=== PATIENT | female | born 1945 | race Caucasian/White ===

== ENCOUNTER 2019-12-06 12:50 | Outpatient (CLI) | payer OTHER | END 2019-12-06 13:04 | disposition home or self-care (01) | LOC: NUCLEAR 12:50 | DX: M81.0 Age-related osteoporosis without current pathological fracture (principal); Z13.820 Encounter for screening for osteoporosis ==

== ENCOUNTER 2020-01-18 06:15 | Emergency (ER) | payer OTHER ==
[~2020-01-18] VITALS: Ht 139.7 cm; Wt 54.4 kg
[2020-01-18] MEDS ORDERED: PROTONIX40 MG PO (07:45)
[2020-01-18] MEDS ORDERED: CARDIZEM LA240 MG PO (07:45)
[2020-01-18] MEDS ORDERED: ANASTROZOLE1 MG PO (07:46)
== END 2020-01-18 12:50 | disposition home or self-care (01) ==
LOC: ER 06:15
DX: M79.661 Pain in right lower leg (principal); M79.89 Other specified soft tissue disorders

== ENCOUNTER 2021-07-11 06:45 | Outpatient (CLI) | payer OTHER ==
[~2021-07-11 06:45] MED LIST: ANASTROZOLE1 MG PO; CARDIZEM LA240 MG PO; PROTONIX40 MG PO
== END 2021-07-11 07:20 | disposition home or self-care (01) ==
LOC: MRI 06:45
PROVIDERS: ATTEND Podiatrist Foot & Ankle Surgery
DX: M76.821 Posterior tibial tendinitis, right leg (principal)
CPT/HCPCS: 73721

== ENCOUNTER 2023-01-23 08:15 | Outpatient (CLI) | payer OTHER | END 2023-01-23 08:30 | disposition home or self-care (01) | LOC: SONOGRAMA 08:15 | DX: M76.821 Posterior tibial tendinitis, right leg (principal); M25.571 Pain in right ankle and joints of right foot ==

== ENCOUNTER 2025-01-02 11:23 | Emergency (ER) | payer OTHER ==
[~2025-01-02] VITALS: Ht 139.7 cm; Wt 56.7 kg
[~2025-01-02 11:23] MED LIST changes: +COZAAR50 MG; +ONDANSETRON ODT8 MG PO; +PEPCID AC20 MG PO
[2025-01-02 14:43] LABS: BASO % 0.7 % (0.1-1.2); EOS # 0.10 (0.04-0.54); EOS % 1.0 % (0.7-7.0); LYMPH # 2.01 (1.18-3.74); LYMPH % 19.2 % (19.3-53.1); MEAN PLATELET VOLUME 10.30 fl (9.4-12.4); MONO # 1.00 (0.24-0.82); MONO % 9.6 % (4.7-12.5); NEUT # 7.23 (1.56-6.13); NEUT % 69.1 % (34.0-71.1); RED CELL DISTRIBUTION WIDTH 13.5 % (11.6-14.4)
[2025-01-02 15:00] LABS: BUN CREA RATIO 22.0 (7.0-25.0); CREATININE SERUM 0.77 mg/dL (0.55-1.02); GFR 71.95; GLUCOSE FASTING 113.0 mg/dL (65-100); OSMOLALITY SERUM 284.0 MOSM/KG (275-295)
== END 2025-01-02 15:01 | disposition home or self-care (01) ==
LOC: ER 11:24
PROVIDERS: General Practice
DX: S09.8XXA Other specified injuries of head, initial encounter (principal); S79.812A Other specified injuries of left hip, initial encounter; W19.XXXA Unspecified fall, initial encounter; Y93.89 Activity, other specified; Y92.89 Other specified places as the place of occurrence of the external cause; Y99.8 Other external cause status; I10 Essential (primary) hypertension; Z88.0 Allergy status to penicillin